=== PATIENT | female | born 1950 | race Caucasian/White ===

== ENCOUNTER 2025-01-29 12:55 | Outpatient (CLI) | payer MEDICARE | END 2025-01-29 12:56 | disposition home or self-care (01) | LOC: SCSMRI 12:55 | PROVIDERS: ATTEND Orthopaedic Surgery | DX: M75.02 Adhesive capsulitis of left shoulder (principal); S43.492A Other sprain of left shoulder joint, initial encounter; M67.814 Other specified disorders of tendon, left shoulder ==